=== PATIENT | male | born 1955 | race Caucasian/White ===

== ENCOUNTER 2019-09-19 09:35 | Emergency (ER) | payer BC, OTHER ==
[2019-09-19] MEDS ORDERED: Lidocaine 1% with EPINEPHrine 1:100,000 10 ML MDV INJECT ONE (09:53)
--- NOTE | 2019-09-19 10:36 | EDM.PDOC ---
ED HPI GENERAL MEDICAL PROBLEM - General Chief Complaint: Laceration Stated Complaint: R PAYNE LAC Time Seen by Provider: 09/19/19 09:42 Source of Information: Reports: Patient History Limitations: Reports: No Limitations - History of Present Illness INITIAL COMMENTS - FREE TEXT/NARRATIVE: The patient presents with a laceration to the right leg. He was on a trailer and jumped down and hit his leg on the hitch. He has a 4cm laceration to the right payne. His tetanus is up to date. Onset: Sudden Duration: Minutes: Location: Reports: Lower Extremity, Right (payne) Quality: Reports: Sharp Severity: Mild Improves with: Reports: None Worsens with: Reports: None Context: Reports: Trauma Associated Symptoms: Reports: No Other Symptoms - Related Data Allergies Allergy/AdvReac Type Severity Reaction Status Date / Time No Known Allergies Allergy Verified 09/19/19 09:44 Home Meds: Home Meds Magnesium 200 mg PO DAILY 09/19/19 [History] Tamsulosin HCl [Flomax] 0.4 mg PO DAILY 09/19/19 [History] Past Medical History - Past Health History Medical/Surgical History: Denies Medical/Surgical History Social & Family History - Tobacco Use Smoking Status *Q: Never Smoker - Recreational Drug Use Recreational Drug Use: No ED ROS GENERAL - Review of Systems Review Of Systems: See Below Constitutional: Reports: No Symptoms HEENT: Reports: No Symptoms Respiratory: Reports: No Symptoms Cardiovascular: Reports: No Symptoms Endocrine: Reports: No Symptoms GI/Abdominal: Reports: No Symptoms : Reports: No Symptoms Musculoskeletal: Reports: Other (laceration to the right payne) ED EXAM, SKIN/RASH Exam: See Below Exam Limited By: No Limitations General Appearance: Alert, No Apparent Distress Ears: Normal External Exam Nose: Normal Inspection Throat/Mouth: Normal Inspection Head: Atraumatic, Normocephalic Neck: Normal Inspection Respiratory/Chest: No Respiratory Distress Extremities: Other (4cm laceration to the right anterior lower leg. Good sensation and pulses distally) ED SKIN PROCEDURES - Laceration/Wound Repair Right Leg Appearance: Subcutaneous, Linear Distal NVT: Neuro & Vascular Intact, No Tendon Injury Anesthetic Type: Local Local Anesthesia - Lidocaine (Xylocaine): 1% with EPI Skin Prep: Saline Exploration/Debridement/Repair: Wound Explored, In a Bloodless Field, Explored to Base Closed with: Sutures Lac/Wound length In cm: 4 Suture Size: 3-0 # of Sutures: 7 Suture Type: Nylon, Interrupted, Simple Tetanus Status Addressed: Yes Complications: No Course - Vital Signs Last Recorded V/S: Last Vital Signs Temp 98.2 F 09/19/19 09:42 Pulse 61 09/19/19 09:42 Resp 16 09/19/19 09:42 BP 110/87 09/19/19 09:42 Pulse Ox 98 09/19/19 09:42 - Orders/Labs/Meds Meds: Medications Discontinued Medications Generic Name Dose Route Start Last Admin Trade Name Corey PRN Reason Stop Dose Admin Lidocaine/Epinephrine 10 ml 09/19/19 09:53 09/19/19 10:18 Xylocaine 1% With Epinephrine 1:100,000 INJECT 09/19/19 09:54 10 ml ONETIME ONE Administration Departure - Departure Time of Disposition: 10:35 Disposition: Home, Self-Care 01 Condition: Good Clinical Impression: Laceration of right lower leg Qualifiers: Encounter type: initial encounter Qualified Code(s): S81.811A - Laceration without foreign body, right lower leg, initial encounter - Discharge Information *PRESCRIPTION DRUG MONITORING PROGRAM REVIEWED*: Not Applicable *COPY OF PRESCRIPTION DRUG MONITORING REPORT IN PATIENT NE: Not Applicable Referrals: Ernie Garrido MD [Primary Care Provider] - 1 Week Additional Instructions: Clean the wound with warm soapy water and apply antibiotic ointment after. The sutures can be removed in 7 to 10 days. Look for any signs of infection such as redness, swelling, pain, or drainage. If you see any of these signs, please return or see your doctor. You may need oral antibiotics. Sepsis Event Note - Evaluation Sepsis Screening Result: No Definite Risk - Focused Exam Vital Signs: Vital Signs Temp Pulse Resp BP Pulse Ox 09/19/19 09:42 98.2 F 61 16 110/87 98 Date Exam was Performed: 09/19/19 Time Exam was Performed: 10:31
== END 2019-09-19 10:45 | disposition home or self-care (01) ==
LOC: JD.ED 09:35
DX: S81.811A Laceration without foreign body, right lower leg, initial encounter (principal); Z79.899 Other long term (current) drug therapy; W22.8XXA Striking against or struck by other objects, initial encounter
CPT/HCPCS: 12002; 99282; 99282-25